=== PATIENT | male | born 1985 | race Caucasian/White ===

== ENCOUNTER 2017-11-08 18:34 | Emergency (ER) | payer MEDICAID, OTHER ==
[~2017-11-08] VITALS: Ht 180.3 cm; Wt 81.8 kg
[2017-11-08] MEDS ORDERED: azithromycin 250mg tablet PO ONE (20:05)
[2017-11-08] MEDS ORDERED: CefTRIAXone 250MG inj IM ONE (20:05)
[2017-11-08 20:15] LABS: CLARITY,URINE CLOUDY (Clear); COLOR,URINE AMBER (Yellow); GLUCOSE, URINE NEGATIVE (Neg); KETONES,URINE NEGATIVE (Neg); LEUKOCYTE ESTERASE ,URINE MODERATE (Neg); NITRITES, URINE NEGATIVE (Neg); OCCULT BLOOD,URINE LARGE (Neg); PH,URINE 7.5 (4.8-8.0); PROTEIN,URINE 100 mg/dl (Neg)
[2017-11-08] MEDS ORDERED: CefTRIAXone 250MG IM Kit w/LIDOcaine IM ONE (20:15)
[2017-11-08 20:25] LABS: UA COLLECTION TYPE CLN CATCH MIDSTREAM
[2017-11-08 20:32] LABS: BACTERIA,URINE NONE SEEN /HPF (Neg); MUCUS STRANDS NONE SEEN /LPF (Neg); RBC,URINE TNTC /HPF (0-2); SQUAMOUS EPITHELIAL CELL,UR NONE SEEN /LPF (FEW); WBC,URINE 30-50 /HPF (0-4)
[2017-11-08 20:38] VITALS: BP 133/75
== END 2017-11-08 20:39 | disposition home or self-care (01) ==
LOC: ER 18:35
DX: N34.2 Other urethritis (principal)
CPT/HCPCS: 81001; 87077; 87088; 87185; 96372; 99284; J0696

== ENCOUNTER 2021-02-27 13:30 | Emergency (ER) | payer SELFPAY ==
[~2021-02-27] VITALS: Ht 182.9 cm; Wt 90.0 kg
[2021-02-27 13:37] VITALS: BP 159/115
[2021-02-27] MEDS ORDERED: CHLO473M3 PO (15:56)
[2021-02-27] MEDS ORDERED: PENI500T2 PO (15:56)
== END 2021-02-27 16:04 | disposition home or self-care (01) ==
LOC: ER 13:30
DX: K04.7 Periapical abscess without sinus (principal); Z79.899 Other long term (current) drug therapy
CPT/HCPCS: 99283

== ENCOUNTER 2023-10-11 21:48 | Emergency (ER) | payer SELFPAY ==
[~2023-10-11] VITALS: Ht 182.9 cm; Wt 110.4 kg
[~2023-10-11 21:48] MED LIST: CHLO473M3 PO
[2023-10-11 21:58] VITALS: TEMP 98
[2023-10-12] MEDS ORDERED: acetaminophen 325mg tablet PO ONE (02:50)
[2023-10-12] MEDS ORDERED: ibuprofen tablet 400 MG TABLET PO ONE (02:50)
[2023-10-12] MEDS ORDERED: TETanus/Pertussis (Acell)/Diphther VAC/PF (Tdap-Adult) 0.5ml syringe IMVAC ONE (02:50)
[2023-10-12] MEDS ORDERED: ceFAZolin 1gm IM kit IM ONE (02:50)
[2023-10-12] MEDS ORDERED: CEPH250T PO (02:58)
[2023-10-12] MEDS ORDERED: DOXY-356 PO (02:58)
[2023-10-12 03:44] VITALS: BP 151/88; PULSE 90; RESP 16; O2SAT 98
== END 2023-10-12 03:40 | disposition home or self-care (01) ==
LOC: ER 21:49
DX: L03.116 Cellulitis of left lower limb (principal); Z79.899 Other long term (current) drug therapy
CPT/HCPCS: 90471; 90715; 96372; 99284; J0690

== ENCOUNTER 2023-10-19 01:21 | Inpatient (IN) | payer SELFPAY ==
[~2023-10-19] VITALS: Ht 182.9 cm; Wt 106.1 kg
[~2023-10-19 01:21] MED LIST changes: +CEPH250T PO; +DOXY-356 PO
[2023-10-19 08:53] LABS: ALANINE AMINOTRANSFERASE 28 U/L (12-78); ALBUMIN 3.9 G/DL (3.4-5.0); ALBUMIN/GLOBULIN RATIO 0.9 (1.1-1.5); ALKALINE PHOSPHATASE 131 IU/L (46-116); ANION GAP 6 (8-16); ASPARTATE AMINO TRANSFERASE 23 U/L (10-37); BILIRUBIN,TOTAL 0.6 MG/DL (0.1-1.0); BLOOD UREA NITROGEN 14 MG/DL (7-18); CALCIUM 9.4 MG/DL (8.5-10.1); CHLORIDE 100 MMOL/L (99-107); CREATININE 1.08 MG/DL (0.60-1.10); GLUCOSE 120 MG/DL (70-104); SODIUM 136 MMOL/L (135-145); TOTAL CARBON DIOXIDE 29.7 MMOL/L (24-32); TOTAL PROTEIN 8.2 G/DL (6.4-8.2); eCRCL 102 ML/MIN; eGFR 77 ML/MIN
[2023-10-19 08:59] LABS: PRO BRAIN NATRIURETIC PEPTIDE 1026 PG/ML (0-125)
[2023-10-19] MEDS ORDERED: heparin 25,000 UNIT/250ml bag 250 ML IV PRN ×2 (09:15→12:10)
[2023-10-19] MEDS ORDERED: heparin 10,000 units/1 ML INJ IV PRN ×2 (09:15→12:10)
[2023-10-19] MEDS ORDERED: heparin 10,000 units/1 ML INJ IV ONE ×2 (09:15→12:10)
[2023-10-19] MEDS ORDERED: iohexol 350MG/ML 100ml bottle IV ONE (09:18)
[2023-10-19 09:47] LABS: INR 1.1 INR; PROTHROMBIN TIME 11.6 SECONDS (9.0-12.0)
[2023-10-19 10:39] LABS: BASOPHILS % (AUTO) 0.3 % (0-1); EOSINOPHILS # (AUTO) 0.1 X10'3 (0-0.9); EOSINOPHILS % (AUTO) 1.4 % (0-6); HEMATOCRIT 42.1 % (42.0-52.0); HEMOGLOBIN 14.5 g/dl (14.0-17.9); LYMPHOCYTES # (AUTO) 1.2 X10'3 (1.1-4.8); LYMPHOCYTES % (AUTO) 17.1 % (21-51); MEAN CORPUSCULAR HEMOGLOBIN 28.1 PG (27.0-31.0); MEAN CORPUSCULAR HGB CONC 34.4 g/dL (33.0-36.5); MEAN CORPUSCULAR VOLUME 81.6 FL (78-98); MEAN PLATELET VOLUME 6.8 FL (7.4-10.4); MONOCYTES # (AUTO) 0.7 X10'3 (0-0.9); MONOCYTES % (AUTO) 10.6 % (2-12); NEUTROPHILS # (AUTO) 4.9 X10'3 (1.8-7.7); NEUTROPHILS % (AUTO) 70.6 % (42-75); PLATELET COUNT 52 X10'3 (140-440); RED BLOOD COUNT 5.16 X10'6 (4.70-6.10); RED CELL DISTRIBUTION WIDTH 13.6 % (11.5-14.5)
[2023-10-19] MEDS ORDERED: normal saline 1000ML IV soln IVB ONE (11:20)
[2023-10-19] MEDS ORDERED: magnesium Cl slow-release 64mg tablet PO PRN (12:10)
[2023-10-19] MEDS ORDERED: potassium Cl 20 mEq SR tablet PO PRN ×2 (12:10)
[2023-10-19] MEDS ORDERED: ondansetron/PF 4mg/2ml inj IV PRN (12:10)
[2023-10-19] MEDS ORDERED: potassium Cl 40MEQ/1/2NS 520ml 520 ML IV PRN (12:10)
[2023-10-19] MEDS ORDERED: magnesium 2GM in 50ml NS 50 ML IV PRN (12:10)
[2023-10-19] MEDS ORDERED: acetaminophen 325mg tablet PO PRN (12:10)
[2023-10-19] MEDS ORDERED: magnesium 4gm in 100ml NS 100 ML IV PRN (12:10)
[2023-10-19 15:30] LABS: ABG BASE EXCESS 0.8 mmol/L (-2.0-2.0); ABG HCO3 23.6 mmol/L (22.0-26.0); ABG OXYGEN SATURATION 95.5 % (94-97); ABG PCO2 (T) 32.7 mmHg (35.0-48.0); ABG PH (T) 7.476 (7.340-7.440); ABG PO2 (T) 73.2 mmHg (75.0-100.0); ALLEN'S TEST POSITIVE; FCOHb 1.1 % (0.0-3.9); FHHb 4.4 % (0.0-5.0); FMetHb 0.2 % (0.0-1.5); FO2Hb 94.3 % (94-97); MODE ROOM AIR; TOTAL HEMOGLOBIN 15.1 G/dl (14.0-17.9)
[2023-10-19] MEDS ORDERED: furosemide 20 MG/2 ML vial IV ONE (17:40)
[2023-10-19 19:35] VITALS: BP 113/79; PULSE 89; RESP 14; TEMP 97.6; O2SAT 99
[2023-10-19 20:00] VITALS: RESP 14; O2SAT 99
[2023-10-19] MEDS: K and/or MAG REPLACEMENT MC SCH (20:00)
[2023-10-19 22:00] VITALS: BP 104/74; PULSE 80; RESP 16; TEMP 98; O2SAT 96
[2023-10-20] VITALS (8 sets, daily range): BP systolic 110–124; BP diastolic 62–81; PULSE 77–98; RESP 10–17; TEMP 97–97.8; O2SAT 95–99
[2023-10-20] MEDS: K and/or MAG REPLACEMENT MC SCH ×2 (08:00→20:00)
[2023-10-20 09:15] LABS: BASOPHILS % (AUTO) 0.4 % (0-1); EOSINOPHILS # (AUTO) 0.1 X10'3 (0-0.9); EOSINOPHILS % (AUTO) 2.5 % (0-6); HEMATOCRIT 40.8 % (42.0-52.0); HEMOGLOBIN 13.9 g/dl (14.0-17.9); LYMPHOCYTES # (AUTO) 1.4 X10'3 (1.1-4.8); LYMPHOCYTES % (AUTO) 30.3 % (21-51); MEAN CORPUSCULAR HEMOGLOBIN 27.7 PG (27.0-31.0); MEAN CORPUSCULAR VOLUME 81.3 FL (78-98); MEAN PLATELET VOLUME 7.2 FL (7.4-10.4); MONOCYTES # (AUTO) 0.5 X10'3 (0-0.9); MONOCYTES % (AUTO) 10.3 % (2-12); NEUTROPHILS # (AUTO) 2.7 X10'3 (1.8-7.7); NEUTROPHILS % (AUTO) 56.5 % (42-75); PLATELET COUNT 55 X10'3 (140-440); RED BLOOD COUNT 5.02 X10'6 (4.70-6.10); RED CELL DISTRIBUTION WIDTH 13.9 % (11.5-14.5); WHITE BLOOD COUNT 4.8 X10'3 (4.5-11.0)
[2023-10-20 09:30] LABS: ALBUMIN 3.2 G/DL (3.4-5.0); ANION GAP 7 (8-16); BLOOD UREA NITROGEN 16 MG/DL (7-18); BUN/CREATININE RATIO 15.4 (10.0-20.0); CALCIUM 8.8 MG/DL (8.5-10.1); CHLORIDE 103 MMOL/L (99-107); CREATININE 1.04 MG/DL (0.60-1.10); GLUCOSE 104 MG/DL (70-104); MAGNESIUM 2.5 MG/DL (1.5-2.4); SODIUM 136 MMOL/L (135-145); TOTAL CARBON DIOXIDE 25.6 MMOL/L (24-32); eCRCL 106 ML/MIN; eGFR 80 ML/MIN
[2023-10-20] MEDS ORDERED: traMADol 50MG tablet PO PRN (15:55)
[2023-10-21 02:00] VITALS: BP 112/65; PULSE 74; RESP 12; TEMP 98; O2SAT 98
[2023-10-21 06:00] VITALS: BP 107/65; PULSE 68; RESP 11; TEMP 98.1; O2SAT 95
[2023-10-21 08:00] VITALS: RESP 17; O2SAT 98
[2023-10-21] MEDS: K and/or MAG REPLACEMENT MC SCH (08:00)
[2023-10-21 08:59] LABS: BASOPHILS % (AUTO) 0.4 % (0-1); EOSINOPHILS # (AUTO) 0.1 X10'3 (0-0.9); EOSINOPHILS % (AUTO) 2.4 % (0-6); HEMATOCRIT 44.1 % (42.0-52.0); HEMOGLOBIN 14.9 g/dl (14.0-17.9); LYMPHOCYTES # (AUTO) 1.3 X10'3 (1.1-4.8); LYMPHOCYTES % (AUTO) 28.6 % (21-51); MEAN CORPUSCULAR HEMOGLOBIN 27.6 PG (27.0-31.0); MEAN CORPUSCULAR HGB CONC 33.7 g/dL (33.0-36.5); MEAN CORPUSCULAR VOLUME 81.8 FL (78-98); MEAN PLATELET VOLUME 7.1 FL (7.4-10.4); MONOCYTES # (AUTO) 0.5 X10'3 (0-0.9); NEUTROPHILS # (AUTO) 2.7 X10'3 (1.8-7.7); NEUTROPHILS % (AUTO) 57.6 % (42-75); PLATELET COUNT 60 X10'3 (140-440); RED BLOOD COUNT 5.39 X10'6 (4.70-6.10); RED CELL DISTRIBUTION WIDTH 13.7 % (11.5-14.5); WHITE BLOOD COUNT 4.6 X10'3 (4.5-11.0)
[2023-10-21 09:25] LABS: ALBUMIN 3.3 G/DL (3.4-5.0); ANION GAP 7 (8-16); BLOOD UREA NITROGEN 16 MG/DL (7-18); BUN/CREATININE RATIO 15.1 (10.0-20.0); CALCIUM 9.2 MG/DL (8.5-10.1); CHLORIDE 103 MMOL/L (99-107); CREATININE 1.06 MG/DL (0.60-1.10); GLUCOSE 108 MG/DL (70-104); MAGNESIUM 2.3 MG/DL (1.5-2.4); POTASSIUM 4.1 MMOL/L (3.5-5.1); SODIUM 137 MMOL/L (135-145); TOTAL CARBON DIOXIDE 26.8 MMOL/L (24-32); eCRCL 104 ML/MIN; eGFR 78 ML/MIN
[2023-10-21] MEDS ORDERED: apixaban 5mg tablet PO STA (10:32)
[2023-10-21] MEDS ORDERED: APIX5TAB3 PO (10:41)
== END 2023-10-21 12:00 | disposition home or self-care (01) | DRG 280 ==
LOC: ER 01:22 → ED HOLD 12:11 → UNDOADMIN 12:11 → ED HOLD 14:10 → PCU 3S 19:25
PROVIDERS: ADMIT Internal Medicine; ATTEND Internal Medicine
PROC: B32T1ZZ Computerized Tomography (CT Scan) of Left Pulmonary Artery using Low Osmolar Contrast (ICD-10-PCS; principal; 2023-10-19)
PROC: B3201ZZ Computerized Tomography (CT Scan) of Thoracic Aorta using Low Osmolar Contrast (ICD-10-PCS; 2023-10-19)
PROC: B32S1ZZ Computerized Tomography (CT Scan) of Right Pulmonary Artery using Low Osmolar Contrast (ICD-10-PCS; 2023-10-19)
DX: I82.412 Acute embolism and thrombosis of left femoral vein (principal); I26.92 Saddle embolus of pulmonary artery without acute cor pulmonale; I21.A1 Myocardial infarction type 2; F11.20 Opioid dependence, uncomplicated; I82.432 Acute embolism and thrombosis of left popliteal vein; D69.6 Thrombocytopenia, unspecified; I50.9 Heart failure, unspecified; I82.452 Acute embolism and thrombosis of left peroneal vein; I82.512 Chronic embolism and thrombosis of left femoral vein; I82.532 Chronic embolism and thrombosis of left popliteal vein; I82.552 Chronic embolism and thrombosis of left peroneal vein; I51.9 Heart disease, unspecified
CPT/HCPCS: 36415; 36600; 71045; 71275; 80048; 80053; 82803; 83735; 83880; 84145; 84484; 85018; 85025; 85610; 85730; 87081; 93306; 93971; 99285; A6258; G0378; J1644; J1940; J3490; J7030; Q9967

== ENCOUNTER 2023-11-18 23:58 | Emergency (ER) | payer MEDICAID ==
[~2023-11-18] VITALS: Ht 180.3 cm; Wt 111.0 kg
[~2023-11-18 23:58] MED LIST changes: +APIX5TAB3 PO; -CEPH250T PO; -DOXY-356 PO
[2023-11-19] MEDS ORDERED: APIX5TAB3 PO (00:55)
[2023-11-19 01:12] VITALS: BP 143/87; PULSE 94; RESP 16; TEMP 98.3; O2SAT 99
== END 2023-11-19 01:14 | disposition home or self-care (01) ==
LOC: ER 23:58
DX: I82.492 Acute embolism and thrombosis of other specified deep vein of left lower extremity (principal); I10 Essential (primary) hypertension; F15.10 Other stimulant abuse, uncomplicated; Z79.899 Other long term (current) drug therapy
CPT/HCPCS: 99283

== ENCOUNTER 2023-12-27 03:52 | Emergency (ER) | payer MEDICAID ==
[~2023-12-27] VITALS: Ht 182.9 cm; Wt 106.0 kg
[2023-12-27] MEDS ORDERED: APIX5TAB3 PO (04:31)
[2023-12-27 04:49] VITALS: BP 148/109; PULSE 97; RESP 18; TEMP 98.2; O2SAT 98
== END 2023-12-27 04:51 | disposition home or self-care (01) ==
LOC: ER 03:53
DX: I50.9 Heart failure, unspecified (principal); Z76.0 Encounter for issue of repeat prescription; F15.10 Other stimulant abuse, uncomplicated; Z79.899 Other long term (current) drug therapy
CPT/HCPCS: 99281; 99283